=== PATIENT | male | born 1955 | race Caucasian/White ===

== ENCOUNTER 2024-05-13 17:34 | Emergency (ER) | payer OTHER ==
[2024-05-13 18:06] VITALS: BP 140/84; PULSE 80; RESP 18; TEMP 98.5; BMI 32.9
[2024-05-13 18:41] LABS: BASO % 0.6 % (0-2.0); EOS % 1.4 % (0-4.5); HEMATOCRIT 26.8 % (35.4-49); HEMOGLOBIN 8.6 GM/dL (11.7-16.9); LYMPH % 32.9 % (8-40); MCH 22.8 pg (25.7-33.7); MEAN CELL VOLUME 71.2 fl (80-96); MEAN PLT VOLUME 6.5 fl (7.5-11.1); MONO % 7.5 % (3.8-10.2); NEUT % 57.6 % (42.8-82.8); PLATELET COUNT 658 10^3/uL (134-434); RBC 3.77 M/mm3 (4.00-5.60); RDW 17.3 % (11.9-15.9)
[2024-05-13 18:59] LABS: POTASSIUM 4.6 mmol/L (3.5-5.1)
[2024-05-13 19:01] LABS: CALCIUM 9.2 mg/dL (8.5-10.1)
[2024-05-13 19:02] LABS: ALBUMIN 2.8 g/dl (3.4-5.0); BLOOD UREA NITROGEN 16.9 mg/dL (7-18)
[2024-05-13 19:05] LABS: CREATININE 0.8 mg/dL (0.55-1.3)
[2024-05-13 19:06] LABS: BILIRUBIN,TOTAL 0.2 mg/dL (0.2-1); TOT PROT 8.4 g/dl (6.4-8.2)
[2024-05-13 19:25] LABS: ERYTHROCYTE SEDIMENTATION RATE 111 mm/hr (0-20)
== END 2024-05-13 19:57 | disposition short-term general hospital (02) ==
LOC: JER 17:34
DX: M00.9 Pyogenic arthritis, unspecified (principal); M25.562 Pain in left knee; M25.462 Effusion, left knee; Z20.822 Contact with and (suspected) exposure to COVID-19
CPT/HCPCS: 0241U-QW; 36415; 73562-TC-LT-FY; 80053; 85025; 85651; 86140; 93005; 93010; 93971-TC; 99285-25